=== PATIENT | female | born 1970 | race Caucasian/White ===

== ENCOUNTER 2018-12-03 06:03 | Day surgery (SDC) | payer OTHER ==
[~2018-12-03] VITALS: Ht 160 cm; Wt 141.0 kg
[~2018-12-03 06:03] MED LIST: ALBU90OI61 INH; AMOCLA875 PO; AMOX500 PO; ASCO500 PO; B Complex1 EAC2 PO; BP MED; BUME1 PO; CEFA500; CEPH500 PO; CLIN300 PO; FENT50TP TOP; FERR325 PO; FLUC200 PO; FLUT1DIS5 INH; FURO20 PO; GLIP10 PO; HYDACE10B PO; HYDACE5 PO; IBUP200; IBUP800 PO; LEVFLO500 PO; LEVSOD25; LISI20 PO; Lisinopril2.5 MG PO; METF500 PO; METO25ER PO; METO50ER PO; MONT10T PO; OPIBELS PR; OXYACE5T PO; PENVK500 PO; PHENA200 PO; PRAV20 PO; PROM25 PO; RXHYDACE PO; RXOXYACE PO; RXPHEN200 PO; SITA25T2 PO; SULTRIDS PO; THYR60 PO; VITAMIN E100 UNI1 PO; WARF10 PO; [UNRECOGNIZED DRUG - OTHER]
--- NOTE | 2018-12-03 10:00 | NUR ---
PT AMBULATES TO AND FROM RESTROOM WITHOUT DIFF. NADN. VSS. L RADIAL REMAINS CLEAR.
--- NOTE | 2018-12-03 10:05 | NUR ---
TR BAND FULLY DEFLATED FROM L RADIAL. TOLERATES WELL. VSS. NADN. PT VERBALIZES UNDERSTANDING WRITTEN AND VERBAL ORDERS. CALL LIGHT WITHIN REACH.
--- NOTE | 2018-12-03 11:13 | NUR ---
PT DRESSES SELF WITHOUT DIFF. NADN. PT TR BAND REMOVED. DOT DRESSING APPLIED. NO BLEEDING OR HEMATOMA NOTED. VSS. NADN. SLINT/SLING PLACED. PT ESCORTED OUT BY WC/ VOLUNTEER.
== END 2018-12-03 11:15 | disposition home or self-care (01) ==
LOC: MHTC 06:03
DX: Z01.810 Encounter for preprocedural cardiovascular examination (principal); I25.10 Atherosclerotic heart disease of native coronary artery without angina pectoris; Q23.0 Congenital stenosis of aortic valve; I89.0 Lymphedema, not elsewhere classified; I10 Essential (primary) hypertension; E11.9 Type 2 diabetes mellitus without complications; G47.33 Obstructive sleep apnea (adult) (pediatric); Z92.21 Personal history of antineoplastic chemotherapy; Z85.71 Personal history of Hodgkin lymphoma; Z92.3 Personal history of irradiation
CPT/HCPCS: 93454; 99152; 99153; C1769; J1644; J2250; J3010; J7030; Q9967

== ENCOUNTER → 2019-05-09 | Outpatient (CLI) | payer OTHER | END | disposition home or self-care (01) | LOC: LAB SHORT 07:35 → PLD 07:35 | DX: C54.1 Malignant neoplasm of endometrium (principal) | CPT/HCPCS: 88305 ==

== ENCOUNTER 2019-06-16 09:13 | Inpatient (IN) | payer OTHER ==
[~2019-06-16] VITALS: Ht 157.5 cm; Wt 129.9 kg
[~2019-06-16 09:13] MED LIST changes: -GLIP10 PO; -LISI20 PO; -METF500 PO; -METO50ER PO; -MONT10T PO; -PRAV20 PO
[2019-06-16 10:21] LABS: BASOPHILS ABSOLUTE AUTO 0.03 K/mm3 (0.00-0.23); BASOPHILS PERCENT AUTO 0 % (0-2); EOSINOPHILS ABSOLUTE AUTO 0.24 K/mm3 (0.00-0.68); EOSINOPHILS PERCENT AUTO 3 % (0-6); Hematocrit 28.2 % (33.0-51.0); Hemoglobin 8.8 g/dL (11.5-16.0); IMMATURE GRAN ABSOLUTE AUTO 0.05 K/mm3 (0.00-0.10); IMMATURE GRAN PERCENT AUTO 1 % (0-1); LYMPHOCYTES ABSOLUTE AUTO 1.42 K/mm3 (0.84-5.20); LYMPHOCYTES PERCENT AUTO 20 % (21-46); MONOCYTES ABSOLUTE AUTO 0.62 K/mm3 (0.16-1.47); MONOCYTES PERCENT AUTO 9 % (4-13); Mean Corpuscular HGB 28.5 pg (26.0-34.0); Mean Corpuscular HGB Conc 31.2 g/dL (31.5-36.5); Mean Corpuscular Volume 91 fL (80-100); Mean Platelet Volume 10.5 fL (9.1-12.4); NEUTROPHILS ABSOLUTE AUTO 4.88 K/mm3 (1.96-9.15); NEUTROPHILS PERCENT AUTO 67 % (41-73); Platelet Count 241 K/mm3 (150-400); RDW Coefficient Variation 12.8 % (11.7-14.2); RDW Standard Deviation 41.7 fL (35.1-46.3); Red Blood Cell Count 3.09 M/mm3 (3.80-5.20); White Blood Cell Count 7.24 K/mm3 (4.00-11.30)
[2019-06-16 10:36] LABS: Alanine Aminotransfer (ALT/SGP 39 U/L (12-78); Albumin, Blood 3.2 g/dL (3.4-5.0); Albumin/Globulin Ratio 0.7 (0.8-1.8); Alk Phos 159 U/L (50-136); Anion Gap 9 mmol/L (6-16); Aspartate Aminotrans (AST/SGOT 28 U/L (12-37); Bilirubin, Total 1.1 mg/dL (0.1-1.0); Blood Urea Nitrogen 12 mg/dL (8-24); Bun/Creatinine Ratio 21.9 (12.0-20.0); CO2, Blood 25 mmol/L (21-32); Calcium, Blood 8.8 mg/dL (8.5-10.1); Chloride, Blood 102 mmol/L (98-108); Creatinine, Blood 0.55 mg/dL (0.40-1.00); Globulin, Blood 4.4 g/dL (2.2-4.0); Glomerular Filtration Rate >60 (60-); Glucose, Blood 291 mg/dL (70-99); Sodium, Blood 136 mmol/L (136-145); Total Protein, Blood 7.6 g/dL (6.4-8.2)
[2019-06-16 10:40] LABS: International Normalized Ratio 0.96; Prothrombin Time Results 10.2 Sec (9.7-11.5)
[2019-06-16] MEDS ORDERED: FURO20 PO (12:10)
[2019-06-16] MEDS ORDERED: METO50ER PO (12:10)
[2019-06-16] MEDS ORDERED: ZESTRIL40 M1 PO (12:10)
[2019-06-16] MEDS ORDERED: PRAV20 PO (12:10)
[2019-06-16] MEDS ORDERED: METF500C PO (12:10)
[2019-06-16] MEDS ORDERED: GLIP10 PO (12:11)
[2019-06-16] MEDS ORDERED: MONT10T PO (12:11)
[2019-06-16] MEDS ORDERED: PLAVIX75 MG PO (12:12)
[2019-06-16] MEDS ORDERED: ASPIR 8181 MG PO (12:12)
[2019-06-16 12:29] LABS: Source, Urine Catheter
[2019-06-16 12:35] LABS: Percent Saturation 14.1 % (15.0-50.0)
[2019-06-16 12:35] LABS: Bilirubin, Urine Neg (Neg); Blood, Urine 4+ (Neg); Glucose Qualitative, Urine 4+ (Neg); Ketones, Urine 2+ (Neg); Leukocyte Esterase, Urine Neg (Neg); Nitrite, Urine Neg (Neg); Protein, Urine 1+ (Neg); Urobilinogen, Urine NORM (Normal)
[2019-06-16 12:46] LABS: Appearance, Urine Hazy (Clear); Bacteria Not Seen /hpf; Color, Urine Yellow (P-Yellow); Red Blood Cells, Urine 0-2 /hpf (0-2); Squamous Epithelial Cells Few /hpf (Few); White Blood Cells, Urine Not Seen /hpf (0-5)
--- NOTE | 2019-06-16 13:05 | NUR ---
PT ARRIVED TO ROOM 305 FROM ER VIA [place], IV ABX INFUSING. PT A/0 X4, AMBULATORY AND INDEPENDENT WITH ADL'S IN ROOM. ORIENTED PT TO ROOM AND CALL SYSTEM. WILL CONTINUE TO MONITOR
--- NOTE | 2019-06-16 19:10 | NUR ---
NO ACUTE CHANGES NOTED SINCE PT ARRIVAL TO FLOOR. ABD/CHEST CELLULITIS MARKED, FIRST DOSE OF IV FERRLECIT GIVEN. PT REPORTS THAT NORCO FINALLY HELPED WITH HER PAIN. WILL CONTINUE TO MONITOR AND REPORT TO ONCOMING RN
[2019-06-17 05:47] LABS: BASOPHILS ABSOLUTE AUTO 0.03 K/mm3 (0.00-0.23); BASOPHILS PERCENT AUTO 1 % (0-2); EOSINOPHILS ABSOLUTE AUTO 0.22 K/mm3 (0.00-0.68); EOSINOPHILS PERCENT AUTO 4 % (0-6); Hematocrit 29.4 % (33.0-51.0); IMMATURE GRAN ABSOLUTE AUTO 0.06 K/mm3 (0.00-0.10); IMMATURE GRAN PERCENT AUTO 1 % (0-1); LYMPHOCYTES ABSOLUTE AUTO 1.22 K/mm3 (0.84-5.20); LYMPHOCYTES PERCENT AUTO 20 % (21-46); MONOCYTES ABSOLUTE AUTO 0.42 K/mm3 (0.16-1.47); MONOCYTES PERCENT AUTO 7 % (4-13); Mean Corpuscular HGB 28.2 pg (26.0-34.0); Mean Corpuscular HGB Conc 30.6 g/dL (31.5-36.5); Mean Corpuscular Volume 92 fL (80-100); Mean Platelet Volume 10.4 fL (9.1-12.4); NEUTROPHILS ABSOLUTE AUTO 4.32 K/mm3 (1.96-9.15); NEUTROPHILS PERCENT AUTO 69 % (41-73); NRBC ABSOLUTE 0.02 K/mm3 (0.00-0.02); NRBC Auto 0.3 /100 WBC (0.0-0.2); Platelet Count 260 K/mm3 (150-400); RDW Coefficient Variation 12.8 % (11.7-14.2); RDW Standard Deviation 42.5 fL (35.1-46.3); Red Blood Cell Count 3.19 M/mm3 (3.80-5.20); White Blood Cell Count 6.27 K/mm3 (4.00-11.30)
--- NOTE | 2019-06-17 06:07 | NUR ---
SHIFT SUMMARY PATIENT RECEIVED TWO DOSES OF NORCO OVERNIGHT. BOTH OF WHICH WERE EFFECTIVE FOR HELPING TO CONTROL HER PAIN. IV IN RIGHT UPPER ARM PATENT AND FLUSHED. PATIENT WAS ABLE TO SLEEP WELL OVER NIGHT. BED IN LOWEST POSITION WITH WHEELS LOCKED. CALL LIGHT AND BELONGINGS WITHIN REACH. REPORT GIVEN TO ONCOMING RN.
--- NOTE | 2019-06-17 08:30 | NUR ---
AREA OF CELLULITIS ON CHEST AND ABDOMEN APPEARS TO BE UNCHANGED, NO GROWTH OR SPREAD NOTED. WILL CONTINUE TO OBSERVE.
--- NOTE | 2019-06-17 16:15 | NUR ---
PT'S PERIPHERAL IV NOT PATENT AND PULLED. LEFTY RN TO EVALUATE FOR POWER GLIDE.
--- NOTE | 2019-06-17 18:48 | NUR ---
JUSTIN REA ATTEMPTING TO PLACE POWER GLIDE AT THIS TIME.
--- NOTE | 2019-06-17 18:48 | NUR ---
CELLULITIS AREA APPEARS UNCHANGED, NO GROWTH OR SPREAD AND PT HAS NOT REQUIRED ANY PAIN MEDICATION TODAY. POWER GLIDE PLACEMENT IS BEING ATTEMPTED AT THIS TIME. NO ACUTE CHANGES NOTED, WILL CONTINUE TO MONITOR AND REPORT TO ONCOMING RN
--- NOTE | 2019-06-18 07:59 | NUR ---
DR INTERIANO CAME IN THIS AM, WAS UPSET THAT PATIENT HAD NO FLUIDS PO. BUT PATIRONALDO DID HAVE 800 ML PLUS INPUT THIS NOC SHIFT. PATIENT REPORTS UNHAPPY WITH LEVEL OF ATTENTION GIVEN HER DURING HT EDAY SHIFT.THIS WAS PASSED TO DAY RN.
--- NOTE | 2019-06-18 18:12 | NUR ---
NO ACUTE CHANGES NOTED, PATIENT DID REPORT AND INCREASE IN VAGINAL BLEEDING WITH BEING UP AND WALKING AROUND THE UNIT. NO CURRENT COMPLAINTS OF PAIN OR DISCOMFORT NOTED. THE EDEMA IN THE PATIENT RIGHT ARM REMAINS. NO OTHER ISSUES NOTED AT THIS TIME. WILL CONTINUE TO MONITOR FOR CHANGES.
--- NOTE | 2019-06-19 07:51 | NUR ---
NO ACUTE CHANGES THIS NOC SHIFT. PATIENT WAS PLEASANT AND COOPERATIVE WITH CARE
[2019-06-19] MEDS ORDERED: CEPHALEXIN500 MG PO (11:03)
--- NOTE | 2019-06-19 12:19 | NUR ---
DISCHARGE: PATIENT DENIED PAIN OR NAUSEA THIS MORNING. REPORTS THAT SHE CONTINUES TO HAVE VAGINAL BLEEDING. DENIES FEELING FAINT OR UNSTEADY ON HER FEET. REPORTS THAT SHE SLEPT WELL LAST NIGHT AND FEELS GOOD THIS MORNING. THE CELLULITIS ON HER CHEST IS A LIGHT, DULL RED WELL WITHIN THE DRAWN MARGINS. PATIENT REPORTS THAT IT IS GREATLY IMPROVED. DENIES PAIN OR TENDERNESS OVER THE SKIN. PER DR. PATRICIA, THE PATIENT IS READY FOR DISCHARGE. DISCHARGE RX SENT TO [facility] ON [address] PER PATIENT REQUEST. DISCHARGE PAPERWORK AND EDUCATION PROVIDED TO THE PATIENT. ALL QUESTIONS AND CONCERNS ADDRESSED. PATIENT DISCHARGED IN WHEELCHAIR WITH BOYFRIEND AND [employer]. PATIENT STABLE AT TIME OF DISCHARGE.
== END 2019-06-19 12:30 | disposition home or self-care (01) | DRG 600 ==
LOC: ER 09:13 → MEDS 12:11 → ENPENDDIS 06-19 08:40 → MEDS 06-19 12:30
PROVIDERS: Emergency Medicine; Physician Assistant; ADMIT Internal Medicine
DX: N61.0 Mastitis without abscess (principal); L03.311 Cellulitis of abdominal wall; Z68.43 Body mass index [BMI] 50.0-59.9, adult; N93.8 Other specified abnormal uterine and vaginal bleeding; C54.1 Malignant neoplasm of endometrium; J45.909 Unspecified asthma, uncomplicated; E78.5 Hyperlipidemia, unspecified; E11.9 Type 2 diabetes mellitus without complications; I10 Essential (primary) hypertension; E66.09 Other obesity due to excess calories; G47.30 Sleep apnea, unspecified; I89.0 Lymphedema, not elsewhere classified; Z23 Encounter for immunization; D50.0 Iron deficiency anemia secondary to blood loss (chronic); Z79.84 Long term (current) use of oral hypoglycemic drugs; Z79.51 Long term (current) use of inhaled steroids; Z85.71 Personal history of Hodgkin lymphoma; Z79.899 Other long term (current) drug therapy; Z86.711 Personal history of pulmonary embolism; Z95.2 Presence of prosthetic heart valve
CPT/HCPCS: 36415; 80053; 81001; 82947; 83540; 83550; 83605; 85025; 85610; 85730; 86850; 86900; 86901; 87040; 87086; 87147; 90686; 93005; 93010; 96374; 99284-25; A9270-GY; J0690; J2916; J7050

== ENCOUNTER 2020-09-19 17:08 | Emergency (ER) | payer OTHER ==
[~2020-09-19] VITALS: Ht 157.5 cm; Wt 136.1 kg
[~2020-09-19 17:08] MED LIST changes: +ASPIR 8181 MG PO; +CEPHALEXIN500 MG PO; +GLIP10 PO; +METF500C PO; +METO50ER PO; +MONT10T PO; +PLAVIX75 MG PO; +PRAV20 PO; +ZESTRIL40 M1 PO
[2020-09-19 18:38] LABS: BASOPHILS ABSOLUTE AUTO 0.06 K/mm3 (0.00-0.23); BASOPHILS PERCENT AUTO 1 % (0-2); EOSINOPHILS PERCENT AUTO 3 % (0-6); Hematocrit 41.9 % (33.0-51.0); Hemoglobin 13.7 g/dL (11.5-16.0); IMMATURE GRAN ABSOLUTE AUTO 0.03 K/mm3 (0.00-0.10); IMMATURE GRAN PERCENT AUTO 0 % (0-1); LYMPHOCYTES ABSOLUTE AUTO 2.17 K/mm3 (0.84-5.20); LYMPHOCYTES PERCENT AUTO 29 % (21-46); MONOCYTES ABSOLUTE AUTO 0.45 K/mm3 (0.16-1.47); MONOCYTES PERCENT AUTO 6 % (4-13); Mean Corpuscular HGB 29.1 pg (26.0-34.0); Mean Corpuscular HGB Conc 32.7 g/dL (31.5-36.5); Mean Corpuscular Volume 89 fL (80-100); Mean Platelet Volume 10.6 fL (9.1-12.4); NEUTROPHILS ABSOLUTE AUTO 4.66 K/mm3 (1.96-9.15); NEUTROPHILS PERCENT AUTO 62 % (41-73); Platelet Count 231 K/mm3 (150-400); RDW Coefficient Variation 12.4 % (11.7-14.2); RDW Standard Deviation 40.5 fL (35.1-46.3); Red Blood Cell Count 4.71 M/mm3 (3.80-5.20); White Blood Cell Count 7.57 K/mm3 (4.00-11.30)
[2020-09-19 21:30] LABS: Alanine Aminotransfer (ALT/SGP 73 U/L (12-78); Albumin, Blood 3.9 g/dL (3.4-5.0); Alk Phos 166 U/L (50-136); Anion Gap 9 mmol/L (6-16); Aspartate Aminotrans (AST/SGOT 40 U/L (12-37); Bilirubin, Total 1.1 mg/dL (0.1-1.0); Blood Urea Nitrogen 16 mg/dL (8-24); Bun/Creatinine Ratio 19.5 (12.0-20.0); CO2, Blood 27 mmol/L (21-32); Calcium, Blood 9.5 mg/dL (8.5-10.1); Chloride, Blood 103 mmol/L (98-108); Creatinine, Blood 0.82 mg/dL (0.40-1.00); Glomerular Filtration Rate >60 (60-); Glucose, Blood 264 mg/dL (70-99); Potassium, Blood 4.2 mmol/L (3.5-5.5); Sodium, Blood 139 mmol/L (136-145); Total Protein, Blood 7.9 g/dL (6.4-8.2); Troponin I <0.015 ng/mL (0.000-0.040)
== END 2020-09-19 22:30 | disposition home or self-care (01) ==
LOC: ER 17:08
PROVIDERS: Physician Assistant
DX: R00.2 Palpitations (principal); R06.02 Shortness of breath; R53.1 Weakness; R42 Dizziness and giddiness; I10 Essential (primary) hypertension; E11.9 Type 2 diabetes mellitus without complications; E78.5 Hyperlipidemia, unspecified; J45.909 Unspecified asthma, uncomplicated; Z79.899 Other long term (current) drug therapy; Z79.84 Long term (current) use of oral hypoglycemic drugs; Z79.02 Long term (current) use of antithrombotics/antiplatelets
CPT/HCPCS: 36415; 71046; 80053; 83880; 84484; 85025; 85379; 93005; 93010; 99284-25

== ENCOUNTER → 2021-05-07 | Outpatient (CLI) | payer OTHER | LOC: LAB 09:47 → LAB SHORT 09:47 | DX: N39.0 Urinary tract infection, site not specified (principal) | CPT/HCPCS: 87077; 87086; 87147; 87186 ==

== ENCOUNTER → 2022-01-14 | Outpatient (CLI) | payer BC | END | disposition home or self-care (01) | LOC: LAB 09:40 → LAB SHORT 09:40 | DX: R06.02 Shortness of breath (principal) | CPT/HCPCS: 83880; 85379 ==

== ENCOUNTER 2022-02-24 18:53 | Emergency (ER) | payer BC ==
[~2022-02-24] VITALS: Ht 160 cm; Wt 122.5 kg
[2022-02-24 19:21] LABS: BASOPHILS ABSOLUTE AUTO 0.08 K/mm3 (0.00-0.23); BASOPHILS PERCENT AUTO 1 % (0-2); EOSINOPHILS ABSOLUTE AUTO 0.22 K/mm3 (0.00-0.68); EOSINOPHILS PERCENT AUTO 3 % (0-6); Hematocrit 42.1 % (33.0-51.0); Hemoglobin 14.3 g/dL (11.5-16.0); IMMATURE GRAN ABSOLUTE AUTO 0.03 K/mm3 (0.00-0.10); IMMATURE GRAN PERCENT AUTO 0 % (0-1); LYMPHOCYTES ABSOLUTE AUTO 2.97 K/mm3 (0.84-5.20); LYMPHOCYTES PERCENT AUTO 35 % (21-46); MONOCYTES ABSOLUTE AUTO 0.41 K/mm3 (0.16-1.47); MONOCYTES PERCENT AUTO 5 % (4-13); Mean Corpuscular HGB 29.2 pg (26.0-34.0); Mean Corpuscular Volume 86 fL (80-100); Mean Platelet Volume 10.3 fL (9.1-12.4); NEUTROPHILS ABSOLUTE AUTO 4.89 K/mm3 (1.96-9.15); NEUTROPHILS PERCENT AUTO 57 % (41-73); Platelet Count 295 K/mm3 (150-400); RDW Coefficient Variation 12.1 % (11.7-14.2); RDW Standard Deviation 37.9 fL (35.1-46.3)
[2022-02-24 19:27] LABS: Base Excess Venous 4.7 mmol/L; Bicarbonate Venous 28.5 mmol/L (24.0-30.0); PCO2 Venous 34.3 mmHg (38-42); pH Blood Venous 7.51 (7.34-7.37)
[2022-02-24 19:47] LABS: Albumin, Blood 3.7 g/dL (3.4-5.0); Albumin/Globulin Ratio 0.8 (0.8-1.8); Bilirubin, Total 1.4 mg/dL (0.1-1.0); Bun/Creatinine Ratio 24.7 (12.0-20.0); Calcium, Blood 9.4 mg/dL (8.5-10.1); Creatinine, Blood 0.53 mg/dL (0.40-1.00); Globulin, Blood 4.5 g/dL (2.2-4.0); Magnesium, Blood 1.6 mg/dL (1.6-2.4); Potassium, Blood 3.8 mmol/L (3.5-5.5); Thyroid Stimulating Hormone 3.45 uIU/mL (0.360-4.800); Total Protein, Blood 8.2 g/dL (6.4-8.2)
[2022-02-24 20:16] LABS: Influenza A, PCR NEGATIVE (NEGATIVE); Influenza B, PCR NEGATIVE (NEGATIVE); Resp Syncytial Virus, PCR NEGATIVE (NEGATIVE); SARS-Cov-2 (COVID-19) PCR, MMC NEGATIVE (NEGATIVE)
== END 2022-02-24 22:18 | disposition home or self-care (01) ==
LOC: ER 18:53
PROVIDERS: Student in an Organized Health Care Education/Training Program
DX: R07.9 Chest pain, unspecified (principal); R06.02 Shortness of breath; E11.9 Type 2 diabetes mellitus without complications; J45.909 Unspecified asthma, uncomplicated; E78.5 Hyperlipidemia, unspecified; I10 Essential (primary) hypertension; Z86.711 Personal history of pulmonary embolism; Z95.4 Presence of other heart-valve replacement; Z79.899 Other long term (current) drug therapy; Z79.84 Long term (current) use of oral hypoglycemic drugs; Z79.02 Long term (current) use of antithrombotics/antiplatelets; Z20.822 Contact with and (suspected) exposure to COVID-19
CPT/HCPCS: 0241U; 36415; 71045; 80053; 82803; 83735; 83880; 84443; 84484; 85025; 85379; 93005; 93010

== ENCOUNTER → 2022-06-22 | Outpatient (CLI) | payer BC ==
[~2022-06-22] MED LIST changes: +INSULANPEN SC; +INSULIN LI100 UNIT/6; +Ventolin5 MG/1 ML INH
[2022-06-22 15:47] LABS: Candida species (DNA Probe) Positive (NEGATIVE); G. vaginalis (DNA Probe) Positive (NEGATIVE); T. vaginalis (DNA Probe) Positive (NEGATIVE)
[2022-06-25 00:10] LABS: CHLAMYDIA TRACHOMATIS, NAA Negative (Negative)
== END | disposition home or self-care (01) ==
LOC: LAB 09:45 → LAB SHORT 09:45
PROVIDERS: Nurse Practitioner Acute Care
DX: Z11.3 Encounter for screening for infections with a predominantly sexual mode of transmission (principal); R30.0 Dysuria
CPT/HCPCS: 87086; 87480; 87510; 87660

== ENCOUNTER 2023-11-05 07:55 | Emergency (ER) | payer MEDICAID ==
[~2023-11-05] VITALS: Ht 160 cm; Wt 131.5 kg
[2023-11-05] MEDS ORDERED: MONT10T PO (08:18)
[2023-11-05] MEDS ORDERED: METO50ER PO (08:18)
[2023-11-05] MEDS ORDERED: LISI20 PO (08:18)
[2023-11-05] MEDS ORDERED: METF500 PO (08:19)
[2023-11-05] MEDS ORDERED: ALBU90OI INH (08:19)
[2023-11-05] MEDS ORDERED: GABA300 PO (08:19)
[2023-11-05] MEDS ORDERED: AMLO5 PO (08:19)
[2023-11-05] MEDS ORDERED: XARELTO20 MG PO (08:20)
[2023-11-05] MEDS ORDERED: OZEMPIC0.25 MG/02 SC (08:20)
[2023-11-05] MEDS ORDERED: Acetaminophen 325 MG TABLET PO ONE (08:55)
[2023-11-05] MEDS ORDERED: Cyclobenzaprine HCl 10 MG Tab PO ONE (08:55)
[2023-11-05] MEDS ORDERED: Ketorolac Tromethamine 30mg Vial IM ONE (08:55)
[2023-11-05] MEDS ORDERED: Lidocaine 4% 1 Patch TOP ONE (08:55)
[2023-11-05] MEDS ORDERED: OxyCODONE 5 mg/Acetamin 325 mg TABLET PO ONE (09:45)
[2023-11-05] MEDS ORDERED: Methocarbamol 500 MG Tab PO ONE (09:45)
[2023-11-05] MEDS ORDERED: INSULANPEN SC ×2 (11:06→11:09)
[2023-11-05] MEDS ORDERED: CYCL10 PO ×2 (11:06→11:09)
[2023-11-05] MEDS ORDERED: Percocet 5-3251 EACH PO ×2 (11:06→11:09)
[2023-11-05 11:24] VITALS: BP 151/79
== END 2023-11-05 11:25 | disposition home or self-care (01) ==
LOC: ER 07:55
DX: M54.42 Lumbago with sciatica, left side (principal); E11.9 Type 2 diabetes mellitus without complications; G47.30 Sleep apnea, unspecified; J45.909 Unspecified asthma, uncomplicated; E78.00 Pure hypercholesterolemia, unspecified; I10 Essential (primary) hypertension
CPT/HCPCS: 96372; 99283-25; A9270; J1885